=== PATIENT | male | born 1950 | race Caucasian/White ===

== ENCOUNTER 2020-08-11 07:49 | Day surgery (SDC) | payer MEDICARE, OTHER ==
[2020-08-11] MEDS ORDERED: Midazolam 1 MG/ML 2 ML SDV IV ONE (07:50)
[2020-08-11] MEDS ORDERED: Propofol 200 MG/20 ML SDV IV ONE (07:50)
[2020-08-11] MEDS: Sodium Chloride 0.9% 1,000 ML IV SCH (08:14)
[2020-08-11] MEDS: Sodium Chloride 0.9% 10 ML Syringe FLUSH PRN (08:44)
[2020-08-11] MEDS ORDERED: Propofol 200 MG/20 ML SDV ONE (09:15)
[2020-08-11] MEDS ORDERED: Midazolam 1 MG/ML 2 ML SDV ONE (09:15)
[2020-08-11] MEDS ORDERED: Sodium Chloride 0.9% 1,000 ML ONE (09:41)
--- NOTE | 2020-08-11 10:28 | PCM.PRNOTE ---
- Free Text/Narrative Note: PROCEDURE PERFORMED: Colonoscopy with polypectomy PRE-PROCEDURE DIAGNOSIS/INDICATION FOR PROCEDURE: History of adenomas (10/02/13 colonoscopy with SSA and tubular adenoma x2; 10/08/14 colonoscopy normal) CONSENT: Informed consent was obtained prior to the procedure after discussion of the risks (including pain, bleeding, infection, perforation, missed polyps, inability to completely remove polyps or complete procedure necessitating repeat colonoscopy, adverse reaction to anesthesia, cardiovascular event), benefits and alternatives and expected outcomes. The patient expressed understanding and wished to proceed. Verbal consent given and consent form signed. PROCEDURAL PAUSE: Completed SEDATION: Per anesthesia DESCRIPTION OF PROCEDURE: Patient was placed in the left lateral decubitus position. After adequate sedation and anesthetic was administered, a rectal exam was performed revealing prostate. A lubricated Olympus Video Colonoscope was inserted into the rectum and air insufflation was performed. The colonoscope was advanced through the rectum, sigmoid, descending, transverse, and ascending colon without difficulties. The cecum was reached and the ileocecal valve as well as the appendiceal orifice were identified and pictorially documented. After adequate visualization of the cecum, the scope was withdrawn, giving 360-degree views of the colonic mucosa and retroflexion was performed in the rectum with the following findings noted: Ileocecal valve: Normal Cecum: Normal Ascending colon: One <5mm polyp at 140cm removed with cold forceps noting subsequent complete removal and hemostasis Hepatic flexure: Normal Transverse colon: Normal Splenic flexure: Normal Descending colon: Normal Sigmoid colon: One >1cm polyp at 40cm removed with hot snare noting subsequent complete removal and hemostasis; Moderate-severe diverticulosis without evidence of bleeding or inflammation Rectum: Normal The scope was straightened, air suction performed, and the scope withdrawn without complication. Preparation adequacy [facility] Bowel Prep 04/30. IMPRESSION: Colonoscopy performed revealing: - Two polyps at 140cm and 40cm, pathology now pending - Sigmoid diverticulosis - Internal hemorrhoids - Incidental note of 60g prostate without nodules; has upcoming PSA planned PLAN: Will contact the patient when pathology results received with recommendation for repeat colonoscopy.
== END 2020-08-11 11:40 | disposition home or self-care (01) ==
LOC: KA.SDS 07:49
PROVIDERS: ATTEND Family Medicine
DX: Z12.11 Encounter for screening for malignant neoplasm of colon (principal); K63.89 Other specified diseases of intestine; K63.5 Polyp of colon; K57.30 Diverticulosis of large intestine without perforation or abscess without bleeding; K64.8 Other hemorrhoids; I10 Essential (primary) hypertension; I73.9 Peripheral vascular disease, unspecified; I25.2 Old myocardial infarction; I25.10 Atherosclerotic heart disease of native coronary artery without angina pectoris; E78.00 Pure hypercholesterolemia, unspecified; F17.200 Nicotine dependence, unspecified, uncomplicated; I71.02 Dissection of abdominal aorta; R16.1 Splenomegaly, not elsewhere classified; Z79.899 Other long term (current) drug therapy; Z79.82 Long term (current) use of aspirin
CPT/HCPCS: 45380; 45385; 82962; J2250; J2704; J7030; 00812